=== PATIENT | male | born 1955 | race Caucasian/White ===

== ENCOUNTER 2025-03-11 09:00 | Outpatient (REF) | payer MEDICARE, MEDICAID, SELFPAY ==
--- OUTSIDE RECORDS SUMMARY | 2025-03-11 09:49 | XMS_ITS ---
Author Name [facility] Organization Unknown Results Test Name/Text Value Interpretation Date Range Source Magnesium SerPl-mCnc 1.9 mg/dL 12/31/2024 1.6 - 2. 7 [facility] Sodium SerPl-sCnc 137.0 mmol/L 12/31/2024 136 - 14 5 H[facility] GFR/BSA.pred SerPlBld [id number] >90.0 12/31/2024 59 - H[facility]CT Glucose SerPl-mCnc 126.0 mg/dL Above high normal 12/31/2024 65 - 99 [facility] Creat SerPl-mCnc 0.7 mg/dL 12/31/2024 0.5 - 1.3 HH CCT BUN SerPl-mCnc 14.0 mg/dL 12/31/2024 8 - [address] Anion Gap Bld-sCnc 12.0 12/31/2024 7 - 17 [facility] Calcium SerPl-mCnc 8.7 mg/dL 12/31/2024 8.7 - 10.5 [facility]CT Potassium SerPl-sCnc 3.5 mmol/L 12/31/2024 3.4 - 5 .3 HHCCT CO2 SerPl-sCnc 25.0 mmol/L 12/31/2024 22 - 33 HH CCT BUN/Creat SerPl 20.0 Ratio 12/31/2024 10 - 25 HH CCT Chloride SerPl-sCnc 100.0 mmol/L 12/31/2024 98 - 1 07 [facility]CT POC Glucose 131.0 mg/dL Above high normal 12/31/2024 65 - 99 H[facility]CT Lactate SerPl-sCnc 1.0 mmol/L 12/30/2024 0.5 - 1.9 [facility]CT Bilirub SerPl-mCnc 0.4 mg/dL 12/30/2024 0.2 - 1 H[facility]CT Prot SerPl-mCnc 6.0 g/dL Below low normal 12/30/2024 6.3 - 8.3 H[facility]CT ALT SerPl-cCnc 11.0 U/L 12/30/2024 10 - 55 [facility] T Albumin SerPl-mCnc 3.6 g/dL 12/30/2024 3.4 - 4.8 H[facility]CT Bilirub Direct SerPl-mCnc 0.1 mg/dL 12/30/2024 0 - 0.2 HHCCT AST SerPl-cCnc 13.0 U/L 12/30/2024 10 - 55 [facility] T Globulin Ser Calc-mCnc 2.4 g/dL 12/30/2024 1.5 - 3.9 [facility]CT Albumin/Glob SerPl 1.5 Ratio 12/30/2024 1 - 3 H[facility]CT ALP SerPl-cCnc 86.0 U/L 12/30/2024 45 - 128 [facility] T Anion Gap Bld-sCnc 12.0 12/30/2024 7 - 17 H[facility]CT CO2 SerPl-sCnc 25.0 mmol/L 12/30/2024 22 - 33 HH CCT BUN/Creat SerPl 13.0 Ratio 12/30/2024 10 - 25 HH CCT Creat SerPl-mCnc 0.6 mg/dL 12/30/2024 0.5 - 1.3 HH CCT GFR/BSA.pred SerPlBld OWP-SYN-JqERol >90.0 12/30/2024 59 - HHCCT Sodium SerPl-sCnc 139.0 mmol/L 12/30/2024 136 - 14 5 HHCCT Potassium SerPl-sCnc 3.5 mmol/L 12/30/2024 3.4 - 5 .3 HHCCT BUN SerPl-mCnc 8.0 mg/dL 12/30/2024 8 - 21 HH[facility] T Chloride SerPl-sCnc 102.0 mmol/L 12/30/2024 98 - 1 07 HHCCT Glucose SerPl-mCnc 108.0 mg/dL Above high normal 12/30/2024 65 - 99 H[facility]CT Calcium SerPl-mCnc 8.8 mg/dL 12/30/2024 8.7 - 10.5 HHCCT Magnesium SerPl-mCnc 1.8 mg/dL 12/30/2024 1.6 - 2. 7 H[facility]CT Lactate SerPl-sCnc 2.2 mmol/L Above high normal 12/30/2024 0 .5 - 1.9 H[facility]CT Ammonia Plas-sCnc 52.0 umol/L 12/30/2024 16 - 60 HHCCT POC Glucose 121.0 mg/dL Above high normal 12/30/2024 65 - 99 HHCCT Prolactin SerPl-mCnc 28.5 ng/mL Above high normal 12/30/2024 4 - 15.2 HHCCT CK SerPl-cCnc 15.0 U/L Below low normal 12/30/2024 24 - 204 HHCCT Prot SerPl-mCnc 5.9 g/dL Below low normal 12/30/2024 6.3 - 8.3 HHCCT Albumin SerPl-mCnc 3.6 g/dL 12/30/2024 3.4 - 4.8 H[facility]CT Albumin/Glob SerPl 1.6 Ratio 12/30/2024 1 - 3 H[facility]CT ALP SerPl-cCnc 84.0 U/L 12/30/2024 45 - 128 HH[facility] T Bilirub Direct SerPl-mCnc 0.1 mg/dL 12/30/2024 0 - 0.2 HHCCT Globulin Ser Calc-mCnc 2.3 g/dL 12/30/2024 1.5 - 3.9 HHCCT AST SerPl-cCnc 13.0 U/L 12/30/2024 10 - 55 [facility] T ALT SerPl-cCnc 12.0 U/L 12/30/2024 10 - 55 [facility] T Bilirub SerPl-mCnc 0.4 mg/dL 12/30/2024 0.2 - 1 HHCCT Calcium SerPl-mCnc 8.7 mg/dL 12/29/2024 8.7 - 10.5 HHCCT Creat SerPl-mCnc 0.6 mg/dL 12/29/2024 0.5 - 1.3 HH CCT CO2 SerPl-sCnc 25.0 mmol/L 12/29/2024 22 - 33 HH CCT Potassium SerPl-sCnc 3.8 mmol/L 12/29/2024 3.4 - 5 .3 HHCCT GFR/BSA.pred SerPlBld OZP-WWH-CxTPmg >90.0 12/29/2024 59 - HHCCT Glucose SerPl-mCnc 100.0 mg/dL Above high normal 12/29/2024 65 - 99 HHCCT Sodium SerPl-sCnc 140.0 mmol/L 12/29/2024 136 - 14 5 HHCCT Chloride SerPl-sCnc 105.0 mmol/L 12/29/2024 98 - 1 07 HHCCT Anion Gap Bld-sCnc 10.0 12/29/2024 7 - 17 HHCCT BUN/Creat SerPl 13.0 Ratio 12/29/2024 10 - 25 HH CCT BUN SerPl-mCnc 8.0 mg/dL 12/29/2024 8 - 21 HH[facility] T Magnesium SerPl-mCnc 1.9 mg/dL 12/29/2024 1.6 - 2. 7 HHCCT Phosphate SerPl-mCnc 3.4 mg/dL 12/29/2024 2.7 - 4. 5 HHCCT Hct VFr Bld Auto 40.3 % 12/29/2024 39 - 54 HH CCT Platelet num Bld Auto 147.0 Thou/uL Below low normal 025 150 - 450 HHCCT MCV RBC Auto 89.0 fL 12/29/2024 80 - 100 HHCCT Hgb Bld-mCnc 13.9 g/dL 12/29/2024 13 - 17.7 HHCCT MCHC RBC Auto-mCnc 34.5 g/dL 12/29/2024 30 - 36 HHCCT WBC num Bld Auto 7.0 Thou/uL 12/29/2024 4 - 11 HHCCT RDW RBC Auto-Rto 12.3 % 12/29/2024 11.5 - 14.5 HHCCT MCH RBC Qn Auto 30.6 pg 12/29/2024 27 - [address] PMV Bld Auto 10.1 fL 12/29/2024 7.5 - 12.5 H[facility]CT RBC num Bld Auto 4.54 Mil/uL 12/29/2024 4.5 - 6.2 HHCCT Encounters Encounter Type Encounter Reason Primary Diagnosis Location Date Inpatient Epilepsy, unspecified, intractable, without status epilepticus Epilepsy, unspecified, intractable, without status epilepticus [facility] 12/29/2024 Ambulatory [facility] 12/29/2024 Ambulatory [facility] 12/29/2024 Amb[facility] 12/29/2024 Ambulatory [facility] in Practice 12/29/2024 Ambulatory [facility] 12/29/2024 Ambulatory [facility] 12/29/2024 Care Team Organization Name Specialty Phone Email Start Date End [facility] Primary Care 12/31/2024 [facility] 12/31/2024 01/27/2025 [facility] 12/29/2024
--- OUTSIDE RECORDS SUMMARY | 2025-03-11 09:50 | XMS_ITS | Data Portability ---
Author Organization [facility], Main Office Address [address] [place] [address] [address] [place] [address] Care Team Providers Care Stone Cutter Name Role Phone CAREONE (NONO UNIT) OTHER VALDEZ SOLANO Primary Care Provider Assessment Encounter Date Assessment Date Assessment LastModified by Organization Details LastModified Time 10/05/2024 10/05/202409/29: wbc 4.7, hgb 12.9, hct 38.1, na 137, k 4.0, bun 18, creat 0.78 glord Not available 10/05/2024 10:23:22 10/08/2024 10/08/202409/29: wbc 4.7, hgb 12.9, hct 38.1, na 137, k 4.0, bun 18, creat 0.78 glord Not available 10/08/2024 11:04:04 Plan of Treatment Reminders Order Date Submit Date Provider Last Modified By Organization Details Last Modified Time Details Appointments None recorded. Lab None recorded. Referral None recorded. Procedures None recorded. Surgeries None recorded. Imaging None recorded. Medication Orders lacosamide 200 mg tablet 2024 025 [facility], [address], [address], [place], [address], 13:33:24 Imitrex 50 mg tablet 2024 025 [facility], [address], [address], [place], [address], 10:46:46 lacosamide 200 mg tablet 2024 025 MEL[facility], [address], [address], [place], [address], 5 13:55:44 Fioricet 50 mg-300 mg-40 mg capsule 2024 025 [facility], [address], [address], [place], [address], 5 08:55:03 Patient TargetsNo targets recorded. Patient InstructionsNo instructions recorded. Reason for Referral None Reported. Problems Name Problem SNOMED Code Status Onset Date Resolution Date Notes Provider Name and Address Organization Details Recorded Time Cerebral infarction due to embolism of cerebral arteries 364457846 Active 2023 Not Available [facility] 5 14:05:43 Epilepsy 37437819 Active 2023 Not Available [facility] 5 14:05:45 Headache disorder 668575464 Active 2023 Not Available [facility] 5 19:22:15 Syncope 307626967 Active [address], [address], [place], [address] , [facility] 4 09:19:48 Seizure disorder 148973960 Active [address], [address], [place], [address] , [facility] 4 09:19:56 Harmful pattern of use of alcohol 86206053 Active [address], [address], [place], [address] , [facility] 4 09:20:06 Tobacco user 610685086 Active [address], [address], [place], [address] , [facility] 4 09:20:13 Cerebrovas cular accident 931372653 Active [address], [address], [place], [address] , [facility] 4 09:20:22 Essential hypertensi on 91381020 Active [address], [place], [address] , [facility] 4 09:21:37 Chronic obstructiv e pulmonary disease 95354158 Active [address], [place], [address] , [facility] 4 09:21:44 Chronic headache disorder 030809176 Active [address], [address], [place], [address] , [facility] 4 09:30:55 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 Procedures Surgical History Date Name Laterality Status Provider Name and Address Organization Details Recorded Time cholecystectomy completed [address] [place], [address], [facility] 08/01/2023 09:22:22 Imaging Results None recorded. Procedure Notes None recorded. Medical Equipment None Reported. Allergies Allergen ID Allergen Name Allergen Category Reaction Reaction Severity Criticality Documentation Date Start Date Code Code System Note Provider Name and Address Organization Details Recorded Time 63690 honey bee venom medicatio n Not available Not available Not available 08/01/2023 [address] [address] [facility] [address], [place], [address], [facility] 4 09:18:28 Medications Name Sig Start Date Stop Date Status Note LastModified by Organization Details LastModified Time cyclobenzapr ine 10 mg tablet TAKE 1 TABLET BY MOUTH THREE TIMES A DAY NEEDED FOR MUSCLE SPASMS. active Not Available Not Available No t Available latanoprost 0.005 % eye drops INSTILL 1 DROP INTO RIGHT EYE EVERY NIGHT USE TONIGHT AND TOMORROW MORNING active Not Available Not Available No t Available Miralax 17 gram/dose oral powder Give 1 scoop by mouth every 24 hours as needed for constipatio n 2024 active Not Available Not Available Not Avai lable atorvastatin 80 mg tablet Give 1 tablet by mouth in the evening for HLD 2024 active Not Available Not Available Not Avai lable Colace 100 mg capsule Give 1 capsule by mouth every 12 hours as needed for constipatio n 2024 active Not Available Not Available Not Avai lable acetaminophe n 325 mg tablet Give 2 tablet by mouth every 6 hours as needed for Pain Do not exceed 3 grams in 24 hours.Total 650 mg AND Give 2 tablet by mouth every 6 hours as needed for Elevated temp >101 Do not exceed 3 grams in 24 hours.Total 650 mg 2024 active Not Available Not Available Not Avai lable Dilaudid 2 mg tablet Give 1 tablet by mouth every 24 hours as needed for Migraine pain 2024 active Not Available Not Available Not Avai lable cefpodoxime 200 mg tablet TAKE 1 TABLET (200 MG TOTAL) BY MOUTH TWICE A DAY FOR 4 DAYS active Not Available Not Available N ot Available metoprolol tartrate 100 mg tablet TAKE 1 TABLET BY MOUTH EVERY DAY active Not Available Not Available No t Available clonidine HCl 0.3 mg tablet Give 0.3 mg by mouth three times a day for HTN 2024 active Not Available Not Available Not Avai lable levocarnitin e 330 mg tablet TAKE 3 TABLETS 3 TIMES A DAY BY MOUTH FOR 30 DAYS. active Not Available Not Available No t Available butalbital-a cetaminophen -caffeine 50 mg-325 mg-40 mg tablet Take 2 tablets every 4 hours by oral route as needed. 2023 active Not Available Not Available Not Avai lable Lipitor 20 mg tablet Give 1 tablet by mouth at bedtime for HLD 2024 active Not Available Not Available Not Avai lable pantoprazole 20 mg tablet,delay ed release Give 1 tablet by mouth one time a day for gerd 2024 active Not Available Not Available Not Avai lable ketorolac 0.5 % eye drops INSTILL 1 DROP INTO LEFT EYE THREE TIMES A DAY START 2 DAYS BEFORE SURGERY active Not Available Not Available No t Available Imitrex 50 mg tablet Give 1 tablet by mouth q 2 hours x 2 doses (max 100mg/day) 2024 active Not Available Not Available Not Avai lable clonidine HCl 0.2 mg tablet TAKE 1 TABLET BY MOUTH TWICE A DAY FOR 90 DAYS active Not Available Not Available No t Available prednisolone acetate 1 % eye drops,suspen charanjit PLACE ONE DROP IN RIGHT EYE FOUR TIMES A DAY FOR 1 WEEK active Not Available Not Available No t Available Nitrostat 0.4 mg sublingual tablet Give 1 tablet sublinguall y every 5 minutes as needed for Angina Sublingual. May repeat every 5 minutes as needed up to 3 doses. Then call MD. 2024 active Not Available Not Available Not Avai lable tamsulosin 0.4 mg capsule TAKE 1 CAPSULE (0.4 MG TOTAL) BY MOUTH DAILY. CONTACT YOUR PCP FOR REFILLS active Not Available Not Available Not Available pantoprazole 40 mg tablet,delay ed release Give 40 mg by mouth one time a day for ulcers 2024 active Not Available Not Available Not Avai lable captopril 50 mg tablet TAKE 1 TABLET BY MOUTH THREE TIMES A DAY FOR 30 DAYS active Not Available Not Available Not Available divalproex 125 mg tablet,delay ed release Give 6 capsule by mouth three times a day for Seizure Disorder May cause drowsiness, avoid alcohol, do not crush 2024 active Not Available Not Available Not Avai lable metoprolol tartrate 50 mg tablet TAKE 1 TABLET BY MOUTH TWICE A DAY active Not Available Not Available No t Available pyridoxine (vitamin B6) 50 mg tablet Give 1 tablet by mouth one time a day for supplement 2024 active Not Available Not Available Not Avai lable gabapentin 300 mg capsule Give 1 capsule by mouth three times a day for neuropathy 2024 active Not Available Not Available Not Avai lable sertraline 25 mg tablet TAKE 1 TABLET BY MOUTH EVERY DAY active Not Available Not Available No t Available folic acid 1 mg tablet TAKE 1 TABLET BY MOUTH EVERY DAY active Not Available Not Available No t Available levetiraceta m 750 mg tablet TAKE 1 TABLET BY MOUTH TWICE A DAY active Not Available Not Available No t Available ibuprofen 600 mg tablet TAKE 1 TABLET BY MOUTH EVERY 6 HOURS active Not Available Not Available No t Available Laxative (sennosides) 8.6 mg tablet Give 1 tablet by mouth every 24 hours as needed for Constipatio n 2024 active Not Available Not Available Not Avai lable sertraline 50 mg tablet TAKE 1 TABLET BY MOUTH EVERY DAY FOR 30 DAYS active Not Available Not Available No t Available divalproex 125 mg capsule,joan yed release sprinkle TAKE 6 CAPSULES (750 MG TOTAL) BY MOUTH 3 (THREE) TIMES A DAY. active Not Available Not Available No t Available Depakote 250 mg tablet,delay ed release Give 1 tablet by mouth two times a day for seizure 2024 active Not Available Not Available Not Avai lable Depakote 500 mg tablet,delay ed release Give 1000 mg by mouth three times a day for seizures 2024 active Not Available Not Available Not Avai lable diazepam 5 mg tablet PLEASE SEE ATTACHED FOR DETAILED DIRECTIONS active Not Available Not Available N ot Available oxycodone 5 mg tablet Give 1 tablet by mouth every 6 hours as needed for pain 2024 active Not Available Not Available Not Avai lable metoprolol tartrate 25 mg tablet TAKE 1 TABLET BY MOUTH EVERY DAY active Not Available Not Available No t Available levetiraceta m 1,000 mg tablet Give 1.5 tablet by mouth two times a day for anticonvuls ant 2024 active Not Available Not Available Not Avai lable varenicline tartrate 1 mg tablet TAKE 1 TABLET BY MOUTH TWICE A DAY WITH MEALS AND WATER active Not Available Not Available No t Available varenicline tartrate 0.5 mg (11)-1 mg (42) tablets in a dose pack DOSE DIRECTED. GIVE WITH MEALS AND WITH A FULL GLASS OF WATER. active Not Available Not Available No t Available melatonin 5 mg tablet Give 1 tablet by mouth every 24 hours as needed for Sleep Aide 2024 active Not Available Not Available Not Avai lable lacosamide 200 mg tablet TAKE 1 TABLET BY MOUTH TWICE A DAY active Not Available Not Available No t Available thiamine mononitrate (vitamin B1) 100 mg tablet Give 200 mg by mouth two times a day for vitamins Take 2 tablets (200mg) 2024 active Not Available Not Available Not Avai lable sodium phosphates 19 gram-7 gram/197 mL enema Insert 1 unit rectally every 24 hours as needed for Constipatio n Use only if Bisacodyl Suppository is ineffective 2024 active Not Available Not Available Not Avai lable Fioricet 50 mg-300 mg-40 mg capsule Give 2 capsule by mouth every 8 hours for headaches 2024 active Not Available Not Available Not Avai lable aspirin 81 mg capsule Give 1 capsule by mouth one time a day for cardiac health 2024 active Not Available Not Available Not Avai lable OneLAX Bisacodyl 10 mg rectal suppository Insert 1 suppository rectally every 24 hours as needed for constipatio n Use if Senna is Ineffective 2024 active Not Available Not Available Not Avai lable Vitals Date Recorded Body temperature Respiratory rate Heart rate Systolic And Diastolic Provider Name and Address Organization Details Last Updated DateTime 10/05/2024 97.5 [degF] 18 /min 68 /min 128/63 mm[Hg] VALERIY LORD [address] [place] [address], [address], [place], [address], [facility] 5 10:24:16 Date Recorded Body temperature Heart rate Systolic And Diastolic Provider Name and Address Organization Details Last Updated DateTime 11/01/2024 97.6 [degF] 64 /min 128/72 mm[Hg] VALERIY LORD [address] [place] [address], [address], [place], [address], [facility] 11/01/2024 09:39:51 Date Recorded Heart rate Oxygen saturation Oxygen saturation in Arterial blood by Pulse oximetry Systolic And Diastolic Provider Name and Address Organization Details Last Updated DateTime 11/03/2024 74 /min 99 % 99 % 157/69 mm[Hg] VALERIY LORD [address], [address], [place], [address] , [facility] 5 09:49:44 Date Recorded Body weight Heart rate Respiratory rate Systolic And Diastolic Provider Name and Address Organization Details Last Updated DateTime 11/05/2024 60141.26 g 60 /min 16 /min 98/58 mm[Hg] Brady Garza MD [address], [address], [place], [address] , [facility] 11/05/2024 11:38:43 Social History Question Answer Notes LastModified by [employer] ion Details LastModified Time Tobacco Smoking Status Current Every Day Smoker VALERIY NOONAN [address], [address], [place], [address], [facility] 08/01/2023 09:23:48 How Many Years Have You Consumed Alcohol? 30 Information not available 08/01/2023 What Is Your Code Status? Full Code Information not available 08/01/2023 What Was The Date Of Your Most Recent Tobacco Screening? 07/31/2023 Information not available 08/01/2023 Have You Ever Been Counseled For Unhealthy Alcohol Use? Yes Information not available 08/01/2023 How Much Tobacco Do You Smoke? 0.5 PPD Information not available 08/01/2023 Has Tobacco Cessation Counseling Been Provided? Yes Information not available 08/01/2023 On What Date Was Tobacco Cessation Counseling Provided? 07/31/2023 Information not available 08/01/2023 How Many Days In The Past Year Have You Consumed 5 Or More Drinks? 365 Information not available 08/01/2023 Sex: Unknown Functional Status Question Answer Note LastModified by Organizat ion Details LastModified Time How many times per week do you consume alcohol? 5-7 times per week 12 beers a day and one sleeve of nips states he drinks up to 1 liter of whiskey a day however no etoh since Jun 2024 [email or web address] Information not available 11/05/2024 Do you use any illicit or recreational drugs? No Information not available 08/01/2023 Do you or have you ever used any other forms of tobacco or nicotine? No Information not available 08/01/2023 What is your level of alcohol consumption? Heavy Information not available 08/01/2023 Mental Status None recorded. Family History Relationship Description Onset Age of this Age Resolved Age Notes LastModified by Organization Details LastModified Time Mother Malignant neoplasm of breast glord Not available 2023 09:23:55 Mother Aortic aneurysm glord Not available 2023 09:24:04 Sister Harmful pattern of use of alcohol glord Not available 2023 09:24:15 Medical History No medical history recorded. Immunizations Vaccine Type Date Status Note Provider Nam e and Address Organization Details Recorded Time influenza, unspecified formulation 05/30/2022 completed Gema Kim [facility] 08/01/2023 10:22:49 influenza, unspecified formulation 02/07/2023 completed Gema Kim [facility] 08/01/2023 10:22:57 influenza, unspecified formulation 05/28/2023 completed Gema Kim [facility] 08/01/2023 10:23:06 SARS-COV-2 (COVID-19) vaccine, UNSPECIFIED 10/10/2020 completed Gema Kim [facility] 08/01/2023 10:23:35 SARS-COV-2 (COVID-19) vaccine, UNSPECIFIED 05/31/2021 completed Gema Kim [facility] 08/01/2023 10:23:46 Past Encounters Encounter ID Performer Location Encounter Start Date Encounter Closed Date Diagnosis/Indication Diagnosis SNOMED-CT Code Diagnosis ICD10 Code Diagnosis IMO Codes Diagnosis Note [id number] VALERIY Toro [facility] on [address] [place] [address] 08/01/2023 09:05:39 08/11/2023 13:54:03 Seizure disorder 313927649 G40.909 PNES, pseudoseiz urePT/OT eval and treatkeppr a 1000 mg BID Cerebrovas cular accident 199750108 I63.9 ASA 81 mg daily- x 3 monthsator vastatin 20 mg qhsplavix 75 mg daily - x 3 monthspant oprazole 40 mg daily - added for protection Harmful pa ttern of use of alcohol 60632250 F10.10 folic acid 1 mg dailypyrid oxine 50 mg dailythiam ine 100 mg BIDMVI dailyencou rage cessation Essential hypertension 53009828 I10 metoprolol 50 mg BIDclonidi ne 0.2 mg BIDmonitor bpsnitro prn Chronic he adache disorder 620408561 G44.89 naproxen PRNAPAP PRNpatient reports he is on fiorcet Tobacco user 043555483 Z 72.0 nicotine dailyencou rage cessatione ducated on risks of smoking Chronic ob structive pulmonary disease 53320495 J44.9 flonase daily [id number] Catracho Aguilar MD [facility] on [address] [place] [address] 08/06/2023 18:47:01 08/18/2023 10:16:18 History of cerebrovascular accident 017169530 Z86.73 MRI: Subacute Right subcortica l [employer] infarct (right corpus callosum, right occipital, and right temporal lobes), etiology unclear Seizure disorder 8312325 02 G40.909 likely multifacto rial; resume meds Harmful pa ttern of use of alcohol 68863097 F10.10 abstain [id number] VALERIY Toro at [facility] on [address] [place] [address] 08/08/2023 10:26:29 08/11/2023 14:19:19 Seizure disorder 663560827 G40.909 PNES, pseudoseiz urePT/OT doing well, DC home eppra 1000 mg BID-keppra 37 on 07/31 Cerebrovas cular accident 642800606 I63.9 ASA 81 mg daily- x 3 monthsator vastatin 20 mg qhsplavix 75 mg daily - x 3 monthspant oprazole 40 mg daily - added for protection Essential hypertension 29895290 I10 152/78 before medscontin ue metoprolol 50 mg BIDclonidi ne 0.2 mg BIDmonitor bpsnitro prn [id number] VALERIY Toro at [facility] on [address] [place] [address] 08/12/2023 10:03:11 08/14/2023 11:43:58 Seizure disorder 773722382 G40.909 PNES, pseudoseiz urekeppra 1000 mg BID-keppra 37 on 07/31VNA to follow at home Cerebrovas cular accident 777185136 I63.9 ASA 81 mg daily- x 3 monthsator vastatin 20 mg qhsplavix 75 mg daily - x 3 monthspant oprazole 40 mg daily - added for protection Essential hypertension 78943934 I10 continue metoprolol 50 mg BIDclonidi ne 0.2 mg BIDnitro prn Harmful pa ttern of use of alcohol 77024784 F10.10 folic acid 1 mg dailypyrid oxine 50 mg dailythiam ine 100 mg BIDMVI dailyencou rage cessation Chronic he adache disorder 459700139 G44.89 naproxen PRNAPAP PRNfiorice t prn Tobacco user 748634881 Z 72.0 nicotine dailyencou rage cessation Chronic ob structive pulmonary disease 82084359 J44.9 flonase daily [id number] [facility] [address] [place] [address] 10/05/2024 09:28:45 10/06/2024 16:09:54 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 see HPI, treated with 5 days IVIGcontin ue gabapentin 300 mg TIDoxycodo ne 5 mg q 6 hours PRNmonitor pain controlPT/ OT eval and treat Seizure disorder 1931772 02 G40.909 HX of PNES, pseudoseiz urePT/OT eval and treatkeppr a 1000 mg BIDlacosam case 200 mg BIDdepakot e 250 mg BIDmonitor for seizure activity Cerebrovas cular accident 376473886 I63.9 ASA 81 mg dailyatorv astatin 20 mg qhspatient to follow up with neuro about ZIO patch to r/o a fibmonitor rate Harmful pa ttern of use of alcohol 15649758 F10.10 folic acid 1 mg dailythiam ine 100 mg BIDpyriodo xine 50 mg dailyencou rage cessation- with recent over use Essential hypertension 94643273 I10 metoprolol 50 mg BIDclonidi ne 0.3 mg TID, hold for bp <110monito r bpsnitro prn Chronic he adache disorder 809357992 G44.89 long hxcontinue fioricet 2 tabs PO q 8 hours Tobacco user 886450507 Z 72.0 nicotine dailyencou rage cessatione ducated on risks of smoking Chronic ob structive pulmonary disease 41276743 J44.9 hx ofmonitor resp status [id number] [facility] [address] [place] [address] 10/08/2024 11:03:03 10/12/2024 09:07:51 Guillain-Lauren syndrome 11450167 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 [id number] see HPI, treated with 5 days IVIGcontin ue gabapentin 300 mg TIDoxycodo ne 5 mg q 6 hours PRN_ PCP can follow up to refill if neededVNA to follow Seizure disorder 4257865 02 G40.909 HX of PNES, pseudoseiz urekeppra 1000 mg BIDlacosam case 200 mg BIDdepakot e 250 mg BID Cerebrovas cular accident 057110081 I63.9 ASA 81 mg dailyatorv astatin 20 mg qhspatient to follow up with neuro about ZIO patch to r/o a fib Harmful pa ttern of use of alcohol 12393916 F10.10 folic acid 1 mg dailythiam ine 100 mg BIDpyridox amine 50 mg dailyencou rage cessation- with recent over use Essential hypertension 43294100 I10 metoprolol 50 mg BIDclonidi ne 0.3 mg TID, hold for bp <110 Chronic he adache disorder 020430920 G44.89 long hxcontinue fioricet 2 tabs PO q 8 hours Tobacco user 385733361 Z 72.0 nicotine dailyencou rage cessatione ducated on risks of smoking Chronic ob structive pulmonary disease 38674361 J44.9 hx of [id number] VALERIY NOONAN [facility] on [address] [place] [address] 11/01/2024 09:04:33 11/04/2024 11:45:08 Seizure disorder 269614398 G40.909 HX of PNES, pseudoseiz urePT/OT eval and treatkeppr a 1500 mg BIDlacosam case 200 mg BIDdepakot e 750 mg TIDmonitor for seizure activity Cerebrovas cular accident 712723500 I63.9 ASA 81 mg dailyatorv astatin 80 mg qhs Harmful pa ttern of use of alcohol 34468650 F10.10 folic acid 1 mg dailythiam ine 100 mg BIDPPI 40 mg dailyzolof t 50 mg dailycloni dine 0.3 mg TIDMVI dailyencou rage cessation- Last evaluated by inpatient DONN 10/26. He is currently declining AUD treatments Essential hypertension 04323643 I10 metoprolol 25 mg BIDcaptopr il 50 mg TIDclonidi ne 0.3 mg TID, hold for bp <110monito r bpsnitro prn Chronic he adache disorder 886617236 G44.89 - patient has been dealing with acute on chronic migraines. - unable to give Fioricet due to interactio n with AED-contin ue sumatripta n 50mg PRN q2h x 2 doses (max 100mg/day) , and then if still not improved, dilaudid 2mg PO x 1 daily- he should follow-up with neurologis t as outpatient to discuss migraine treatment including botoxmonit or for pain control Tobacco user 338601731 Z 72.0 nicotine dailyencou rage cessatione ducated on risks of smoking Chronic ob structive pulmonary disease 28808413 J44.9 hx ofmonitor resp statusbreo daily Pain of hip region 46100 002 M25.552 [id number] -CT of Left hip negative for fracture; MRI Positive for osteoarthr itis with degenerati ve tearing of the labrum; chronic tear of the left gluteus no joint patient, fracture or osteonecro sis - PT/OT eval -Patient with hx of LLE weakness since 2023 Esophageal dysphagia 408 13194 R13.19 8211 hx ofSLP eval [id number] VALERIY Toro at [facility] on [address] [place] [address] 11/03/2024 09:45:28 11/08/2024 15:11:11 Seizure disorder 834480856 G40.909 HX of PNES, pseudoseiz urecontinu ekeppra 1500 mg BID- question if he is getting this dose accurately lacosamide 200 mg BIDdepakot e 750 mg TIDadd STAT depakote and keprra level nowmonitor neuros and [place] [id number] Brady Garza MD [facility] on [address] [place] [address] 11/05/2024 11:38:13 11/08/2024 15:18:43 Seizure disorder 093427371 G40.909 Known seizure hx since childhood and ETOH withdrawal seizuresPa tient required transfer [place] [facility] [place] concern for breakthrou gh seizure found to have Psychogeni c Non-Epilep tic Seizure [facility] for [facility] issue now onkeppra 1500 mg biddepakot e 1000 mg tidlacosam case 200 mg bidencoura ged etoh abstinence to f/u with neuro in 4-6 weeksmonit or for activityco ordinate with neuronow preparing for dischargec leared by therapycoo rdinating with nursing to ensure follow ups in place Cerebrovas cular accident 863770201 I63.9 ASA 81 mg qdlipitor 80 mg qdcontinue dadded to H Harmful pa ttern of use of alcohol 18614768 F10.10 encourage refraining monitor ability to increase support in communityc ontinue supplement s Essential hypertension 82197118 I10 metoprolol 25 mg bidcaptopr il 50 mg tidclonidi ne 0.3 mg tid with parameters monitor bp and need to titrate Tobacco user [id number] Z 72.0 encourage cessation 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 [id number] see abovepsych eval prn Primary insomnia 5093256 F51.01 67434 melatonin 5 mg qhsmonitor for effect Health Concerns Section Related Observation LastModified by Organization Detai ls LastModified Time None Recorded Concern Status LastModified by Organization Details LastModified Time None Recorded Advance Directives Directive None Recorded Payers Insurance Date Sequence Insurance Name Policy Number Policy [place] Covered Member ID Horvaht Member ID Guarantor Name 11/08/2024 1 [facility] (MEDICARE REPLACEMENT/A DVANTAGE - PPO) [id number] Amilcar De [id number] Amilcar De Notes Date Note Type Note Provider Name and Address Organization Details Recorded Time 10/05/2024 text/html This is a 69 year old male seen today for initial intake visit. Patient [place] [facility] with inability to [place], decreased feeling in both legs and sustained a fall. 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 He was treated with 5 days of IVIG. His course was complicated by headache, red skin and hypotension and was treated with hydralazine. His sxs improved with exception of headache, which he was placed on fioricet for with improvement. He had overall improvement in his lower ext weakness, once stable he was discharged to complete short term rehab. He will follow up with cardiology, he malinda need zio patch to rule out afib. VALERIY NOONAN [address] [place] [address], [address], [place], [address], [facility] 10/05/2024 10:40:25 10/08/2024 text/html This is a 69 year old male seen today for discharge summary visit. 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 He is asking to see a provider today, he is very upset and would like to leave. His sister was admitted to the hospital with liver cancer and not doing well. He wants to leave now to be able to go and see her. PT saw him today get up and walk, open and close dresser drawers and get up to use the bathroom with no issue.He is medically stable, he is ok go DC medically, waiting on SW to discuss. Per PT on 10/07: Pt ambulated up to 250' per trial with RW, supervision for occasional safety cues. Progressed pt to SPC, ambulated up to 250', CGA initially progressed to supervision to cue for occasional proper sequencing with AD as ptwill take 2 steps before placing SPC but no LOB. Pt ascended/descended 16 steps, 1 rail on L, progressed to supervision with cues for slower pace to improve [id number]: (I) with bed mobility and supine<>sit. Supervision for transfers to cue for safest technique and proper setup prior to attempting. Pt wishing to d/c NEW. Updated CM on LISA CROOKS [address], [address], [place], [address], [employer] 10/08/2024 11:54:47 11/01/2024 text/html This is a 69-year-old male seen today for initial intake visit. Patient with past medical history of hypertension, seizure disorder, history of CVA, COPD, lung CA s/p resection, AUD c/b withdrawal seizure. Patient with a hx of seizures since childhood and ETOH withdrawal seizures. 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 Patient had reported to staff that he consistently took his anti seizure meds despite low VPA levels. He also denied ETOH use in the last couple of months -EEG on 10/17 showed occasional to frequent bursts of 1Hz GRDA, no captured seizures-CTA H/N negative for intracranial aneurysm, arteriovenous malformation or large vessel thrombosis. Unchanged stenosis of the intracranial arteries- Brain MRI negative for acute infarct, positive for multiple chronic infarctsHad another possible seizure vs subclavian steal like episode on 6/5He had neuro consult who recommended to continue Keppra 1500mg BID, VPA 750mg TID and Lacosamide 200mg BID and to follow up with neuro in 4-6 weeks.He was evaluated by therapy and felt he could benefit from STR. Of note, patient was admitted here last month and left abruptly to visit his sister in the hospital. VALERIY NOONAN [address] [place] [address], [address], [place], [address], [facility] [employer] 11/01/2024 09:45:05 11/03/2024 text/html This is a 69-year-old male seen today for acute rounding visit. Patient with past medical history of hypertension, seizure disorder, history of CVA, COPD, lung CA s/p resection, AUD c/b withdrawal seizure. Patient with seizure today witnessed by this provider. It lasted in and out about 5 minutes. He got very emotional after, crying saying that he feels like his seizures will kill him. Per neurology he was discharged here on Keppra 1500mg BID, VPA 750mg TID and Lacosamide 200mg BID and to follow up with neuro in 4-6 weeks. Will obtain stat keppra and depakote levels now to see if he is therapeutic. VALERIY NOONAN [address] [place] [address], [address], [place], [address], [facility] [employer] [facility] 11/03/2024 10:01:25 11/05/2024 text/html Patient is a 69 yo male admit from hospital. Known seizure hx since childhood and ETOH withdrawal seizures. 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. Work up negative for acute issue now onkeppra 1500 mg biddepakote 750 mg tid now increased to 1000 mg tidlacosamide 200 mg bidencouraged etoh abstinenceto f/u with neuro in 4-6 weeks PMH significant foretoh with hx withdrawal seizureseizure disordertobacco usehtnhx guillain-barre syndrome admit to facility for continued care and therapy. By report repeated seizure activity earlier this week. Now stable and preparing for discharge Patient is insistent on leaving facility today states My sister was just diagnosed with cancer 2 weeks ago and she doesn't have long to live Brady Garza MD [address] [place] [address], [address], [place], [phone], [facility] 11/05/2024 12:11:40
[2025-03-11 13:31] LABS: MANUAL DIFF FLAG NO
[2025-03-11 13:37] LABS: Hematocrit 47.8 % (42.0-52.0); Hemoglobin 15.9 g/dl (14.0-18.0); Imm Gran Abs Auto 0.05 X10*3/uL (0.00-0.03); Imm Gran Pct Auto 0.6 % (0.0-0.4); Lymphocytes Absolute Auto 1.5 X10*3/uL (1.2-4.9); Mean Corpuscular HGB Conc 33.3 g/dl (31.0-36.0); Mean Corpuscular Hemoglobin 29.6 pg (27.0-33.0); Mean Corpuscular Volume 88.8 fL (80.0-98.0); NRBC Abs Auto 0.000 X10*3/uL (0.0-0.012); NRBC Pct Auto 0.0 /100WBC (0.0-0.2); Platelet Count 160 X10*3/uL (160-400); Red Blood Count 5.38 X10*6/uL (4.60-5.80); White Blood Count 7.9 X10*3/uL (4.8-10.8)
[2025-03-11 15:23] LABS: Folate 13.2 ng/mL (> or = 4.0); Vitamin B12 305 pg/mL (200-900)
[2025-03-16 11:28] LABS: Levetiracetam Keppra <2.0 mcg/mL (6.0-46.0)
== END 2025-03-11 09:01 | disposition home or self-care (01) ==
LOC: HO.MANLDS 09:00
PROVIDERS: Visit Provider Internal Medicine
DX: G40.909 Epilepsy, unspecified, not intractable, without status epilepticus (principal); F10.20 Alcohol dependence, uncomplicated; Z79.899 Other long term (current) drug therapy
CPT/HCPCS: 36415; 80164; 80177; 80235; 82607; 82746; 85025